=== PATIENT | male | born 1965 ===

== ENCOUNTER → 2019-02-08 | Outpatient (CLI) | payer OTHER | END | disposition home or self-care (01) | LOC: PLD 07:49 → LAB SHORT 07:49 | DX: L82.1 Other seborrheic keratosis (principal) | CPT/HCPCS: 88305 ==

== ENCOUNTER → 2022-04-05 | Outpatient (CLI) | payer BC | END | disposition home or self-care (01) | LOC: LAB SHORT 07:56 → LAB 07:56 → PLD 07:56 | DX: D22.39 Melanocytic nevi of other parts of face (principal); L82.1 Other seborrheic keratosis | CPT/HCPCS: 88305 ==